=== PATIENT | male | born 1955 | race Caucasian/White ===

== ENCOUNTER → 2017-03-11 | Outpatient (CLI) | payer BC ==
--- NOTE | 2017-03-11 14:36 | DI ---
History: Muscle weakness Comparison: None Findings: The right frontal lobe, there is a 3.3 x 3.9 x 3.3 cm cystic lesion which extends from the right fron dru cortex, and extends into the right lateral ventricle. There is ex vacuo dilatation of the right l ateral ventricle. There is no surrounding edema. 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 There is no hemorrhage There are no extra-axial fluid collections. There is no acute CVA. Postcontrast images demonstrate no enhancing lesions. Note is made of the left maxillary sinus is hypoplastic and there is mucosal thickening in the left m axillary sinus. 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
== END ==
LOC: MRI 12:55
PROVIDERS: ATTEND Family Medicine
DX: M62.81 Muscle weakness (generalized) (principal); J34.1 Cyst and mucocele of nose and nasal sinus
CPT/HCPCS: 70553